=== PATIENT | female | born 1950 | race Caucasian/White ===

== ENCOUNTER → 2017-08-24 21:05 | Outpatient (CLI) | payer MEDICARE, OTHER | END | disposition home or self-care (01) | LOC: D.MAMMO 08-23 10:30 → D.US 08-23 11:30 → D.MAMMO 10:30 | DX: Z85.3 Personal history of malignant neoplasm of breast (principal) ==

== ENCOUNTER → 2018-05-31 10:55 | Outpatient (CLI) | payer MEDICARE, OTHER | END | disposition home or self-care (01) | LOC: D.LABREF 10:55 | PROVIDERS: ATTEND Internal Medicine Pulmonary Disease | DX: J45.909 Unspecified asthma, uncomplicated (principal) ==

== ENCOUNTER → 2018-06-01 10:35 | Outpatient (CLI) | payer MEDICARE, OTHER ==
[2018-06-01 11:23] LABS: BASOPHILS 0.6 % (0-2); EOSINOPHILS 2.7 % (0-7); HEMATOCRIT 39.9 % (36.0-48.0); HEMOGLOBIN 12.7 g/dL (12-16); IMMATURE GRANULOCYTES 0.2 % (0-5); LYMPHOCYTES 42.6 % (15-50); MCH 28.9 pg (26.0-34.0); MCHC 31.8 g/dL (31.0-37.0); MCV 90.9 fL (80.0-100.0); MEAN PLATELET VOLUME 9.6 fL (7.4-10.4); MONOCYTES 6.5 % (2-11); NEUTROPHILS 47.4 % (40-80); PLATELET COUNT 295 10x3/uL (130-400); RBC 4.39 10x6/uL (4.00-5.40); RDW 13.7 % (11.5-14.5); WBC 4.8 10x3/uL (4.8-10.8)
== END | disposition home or self-care (01) ==
LOC: D.LABREF 10:35
PROVIDERS: Internal Medicine Pulmonary Disease
DX: J45.909 Unspecified asthma, uncomplicated (principal)

== ENCOUNTER → 2018-08-01 09:18 | Outpatient (CLI) | payer MEDICARE, OTHER | END | disposition home or self-care (01) | LOC: D.RT 06-06 14:00 → D.RAD 06-06 15:00 → D.RT 09:18 | PROVIDERS: ATTEND Internal Medicine Pulmonary Disease | DX: J45.909 Unspecified asthma, uncomplicated (principal) ==

== ENCOUNTER 2018-08-27 08:00 | Outpatient (CLI) | payer MEDICARE, OTHER | END 2018-08-27 23:59 | disposition home or self-care (01) | LOC: D.MAMMO 08:00 | PROVIDERS: ATTEND Internal Medicine Hematology & Oncology | DX: C50.911 Malignant neoplasm of unspecified site of right female breast (principal) ==

== ENCOUNTER 2019-01-25 19:15 | Emergency (ER) | payer MEDICARE, OTHER ==
[~2019-01-25] VITALS: Ht 162.6 cm; Wt 79.5 kg
[2019-01-25 19:25] VITALS: Ht 162.6 cm; Wt 79.5 kg
[2019-01-25] MEDS ORDERED: POLYTRIM EYE DR10 ML LEFT EYE (20:20)
[2019-01-25 20:26] VITALS: BP 149/74
== END 2019-01-25 20:27 | disposition home or self-care (01) ==
LOC: D.ER 19:15
DX: H57.12 Ocular pain, left eye (principal); I10 Essential (primary) hypertension; J45.909 Unspecified asthma, uncomplicated; M35.00 Sjogren syndrome, unspecified

== ENCOUNTER 2019-06-24 11:10 | Emergency (ER) | payer MEDICARE, OTHER ==
[~2019-06-24] VITALS: Ht 162.6 cm; Wt 79.5 kg
[~2019-06-24 11:10] MED LIST: POLYTRIM EYE DR10 ML LEFT EYE
[2019-06-24 11:16] VITALS: Ht 162.6 cm; Wt 79.5 kg
[2019-06-24] MEDS ORDERED: LOSARTAN-HCTZ1 EAC1 PO (11:20)
[2019-06-24] MEDS ORDERED: GABAPENTIN300 MG (11:20)
[2019-06-24] MEDS ORDERED: RELAFEN500 MG (11:20)
[2019-06-24] MEDS ORDERED: BREO ELLIPTA 11 EACH INH (11:21)
[2019-06-24] MEDS ORDERED: VENTOLIN HFA [SP8 GM INH (11:22)
[2019-06-24] MEDS ORDERED: OMEPRAZOLE40 MG PO (11:23)
[2019-06-24] MEDS ORDERED: XANAX XR0.5 MG PO (11:23)
[2019-06-24] MEDS ORDERED: SINGULAIR10 MG PO (11:23)
[2019-06-24] MEDS ORDERED: FLUTICASONE PRO16 GM NASAL (11:24)
[2019-06-24] MEDS ORDERED: ANASTROZOLE (11:25)
[2019-06-24] MEDS ORDERED: MELATONIN5 MG PO (11:26)
[2019-06-24] MEDS ORDERED: CALCIUM 600 +1 EAC3 (11:26)
[2019-06-24] MEDS ORDERED: [UNRECOGNIZED DRUG - OTHER] (11:27)
[2019-06-24] MEDS ORDERED: [UNRECOGNIZED DRUG - OTHER] (11:27)
[2019-06-24] MEDS ORDERED: HAIR SKIN NAILS (11:27)
[2019-06-24] MEDS ORDERED: FIBERCON625 MG (11:28)
[2019-06-24] MEDS ORDERED: CLEAR LUNGS (11:28)
[2019-06-24 12:07] LABS: BASOPHILS 0.5 % (0-2); EOSINOPHILS 1.9 % (0-7); HEMATOCRIT 43.1 % (36.0-48.0); IMMATURE GRANULOCYTES 0.3 % (0-5); LYMPHOCYTES 34.3 % (15-50); MCH 28.9 pg (26.0-34.0); MCHC 32.5 g/dL (31.0-37.0); MONOCYTES 6.6 % (2-11); NEUTROPHILS 56.4 % (40-80); PLATELET COUNT 309 10x3/uL (130-400); RBC 4.84 10x6/uL (4.00-5.40); RDW 12.4 % (11.5-14.5); WBC 5.7 10x3/uL (4.8-10.8)
[2019-06-24 12:13] LABS: CALC OSMOLALITY 270 mosm/kg (275-300); CALCIUM 10.6 mg/dL (8.5-10.1); CARBON DIOXIDE 25.9 mmol/L (21.0-32.0); CHLORIDE - SERUM 100 mmol/L (98-107); CREATININE - SERUM 0.9 mg/dL (0.6-1.3); GLUCOSE 96 mg/dL (74-106); POTASSIUM - SERUM 4.3 mmol/L (3.5-5.1); SODIUM 135 mmol/L (136-145); UREA NITROGEN 14 mg/dL (7-18); eGFR NON AFRICAN AMERICAN 66 mL/min (90-120)
[2019-06-24 12:31] LABS: ALBUMIN 4.5 g/dL (3.4-5.0); ALKALINE PHOSPHATASE 91 U/L (30-120); ALT (SGPT) 29 U/L (10-68); BILIRUBIN - TOTAL 0.57 mg/dL (0.2-1.3); CKMB 0.8 U/L (0.0-3.6); CREATINE KINASE 60 UL (21-215); PRO BNP 11 pg/mL (0-125); PROTEIN - SERUM 7.6 g/dL (6.4-8.2); TROPONIN-I < 0.017 ng/mL (0.000-0.060)
[2019-06-24 12:40] LABS: INR 0.9 (0.85-1.17); PROTIME 12.1 SECONDS (11.6-15.0)
[2019-06-24 13:07] VITALS: BP 118/64
== END 2019-06-24 13:11 | disposition home or self-care (01) ==
LOC: D.ER 11:10
PROVIDERS: Family Medicine
DX: R06.09 Other forms of dyspnea (principal); I10 Essential (primary) hypertension; E78.5 Hyperlipidemia, unspecified; J45.909 Unspecified asthma, uncomplicated; M35.00 Sjogren syndrome, unspecified; K21.9 Gastro-esophageal reflux disease without esophagitis

== ENCOUNTER → 2019-07-08 08:33 | Outpatient (CLI) | payer MEDICARE, OTHER ==
[2019-06-24 11:16] VITALS: BMI 30.1
[~2019-07-08 08:33] MED LIST changes: +ANASTROZOLE; +BREO ELLIPTA 11 EACH INH; +CALCIUM 600 +1 EAC3; +CLEAR LUNGS; +FIBERCON625 MG; +FLUTICASONE PRO16 GM NASAL; +GABAPENTIN300 MG; +HAIR SKIN NAILS; +LOSARTAN-HCTZ1 EAC1 PO; +MELATONIN5 MG PO; +OMEPRAZOLE40 MG PO; +RELAFEN500 MG; +SINGULAIR10 MG PO; +VENTOLIN HFA [SP8 GM INH; +XANAX XR0.5 MG PO; +[UNRECOGNIZED DRUG - OTHER]; +[UNRECOGNIZED DRUG - OTHER]
== END | disposition home or self-care (01) ==
LOC: D.HCCECHO 08:33
PROVIDERS: ATTEND Internal Medicine Cardiovascular Disease
DX: R06.02 Shortness of breath (principal)

== ENCOUNTER → 2019-07-10 07:54 | Outpatient (CLI) | payer MEDICARE, OTHER ==
[2019-06-24 11:16] VITALS: BMI 30.1
== END | disposition home or self-care (01) ==
LOC: D.HCCARDIO 07:54
PROVIDERS: ATTEND Internal Medicine Cardiovascular Disease
DX: I20.9 Angina pectoris, unspecified (principal)

== ENCOUNTER 2019-07-23 06:21 | Outpatient (CLI) | payer MEDICARE, OTHER ==
[~2019-07-23] VITALS: Ht 162.6 cm; Wt 80.7 kg
--- NOTE | ~2019-07-23 | HEMODYNAMI ---
PATIENT:BRYAN UGALDE MEDICAL RECORD: [id number] : 48 LOCATION:[facility] ADMISSION DATE: 07/23/19 Generatedon:07/23/20198:44 Patient name: BRYAN UGALDE Patient #: [id number] SSN: [id number] : 1950 Date of study: 07/23/2019 Page: Of Hemodynamic Procedure Report Patient Data Patient Demographics Procedure consent was obtained First Name: BRYAN Gender: Female Last Name: AFTAB : 1950 Patient #: [id number] Age: 69 year(s) Race: Unknown SSN: [id number] Additional ID: [id number] Contact details Address: [address] [place] [address] State: [place] City: [place] Zip code: [address] Past Medical History Performed procedures and imaging results Date Procedure Procedure Results Comments Stress testing Positive->Intermediate with SPECT MPI risk Allergies Allergen Reaction Date Comments Reported Shellfish 07/23/2019 Admission Admission Data Admission Date: 07/23/2019 Admission Time: 6:21 Arrival Date: 07/23/2019 Arrival Time: 0:00 Height (in.): 64 BSA: 1.86 (m2) Height (cm.): 162.56 BMI: 30.38 (kg/m2) Weight (lbs.): 177 Weight (kg.): 80.29 Lab Results Lab Result Date: 07/23/2019 Lab Result Time: 0:00 Biochemistry Name Units Result Min Max BUN mg/dl 12 --(-*--)-- 7 18 Creatinine mg/dl 0.9 --(-*--)-- 0.6 1.3 eGFR ml/min 66 *-(----)-- 90 120 NONAFRICAN CBC Name Units Result Min Max Hematocrit % 38 *-(----)-- 42 54 Hemoglobin g/dl 12.8 -*(----)-- 13.5 17.5 Procedure Procedure Types Cath Procedure Diagnostic Procedure [facility] w/Coronaries Sedation Charges Moderate Sedation up to 15 minutes PCI Procedure Coronary Stent Coronary Stent Initial Hemochron ACT Test Procedure Description Procedure Date Procedure Date: 07/23/2019 Procedure Start Time: 8:16 Procedure End Time: 8:42 Procedure Staff Name Function Mitchel Jama MD Performing Physician Bell Erickson RT Monitor Simin Stanley RT Scrub Deanna Matute RN Nurse Grecia Bean, RN Nurse Procedure Data Cath Procedure Fluoroscopy Diagnostic fluoroscopy Total fluoroscopy Time: 4.7 time: 4.7 min min Diagnostic fluoroscopy Total fluoroscopy dose: 546 dose: 546 mGy mGy Contrast Material Contrast Material Type Amount (ml) Isovue 300 95 Entry Location Entry Primary Successful Side Size Upsize Upsize Entry Closure Trejo ccessful Closure Location (Fr) 1 (Fr) 2 (Fr) Remarks Device Remarks Radial Right 6 Fr Mechanical artery Short Compression Estimated blood loss: 10 ml Diagnostic catheters Device Type Used For End Catheter Placement DIAGNOSTIC Inola 110cm 5 Procedure Fr catheter ([id number]) Procedure Complications No complications Procedure Medications Medication Administration Route Dosage 0.9% NaCl I.V. 100 ml/hr Oxygen etCO2 Nasal cannula 2 l/min Lidocaine 2% added to field 20 Heparin Flush Bag added to field 2 bags (1000units/500ml NS) Radial Cocktail added to field 1 syringe (Verapamil 2mg/Nitro 400mcg/Heparin 1500units) Phenergan I.V. 25 mg Fentanyl I.V. 100 mcg Versed I.V. 2 mg Versed I.V. 1 mg Versed I.V. 1 mg Heparin Bolus I.V. 8000 units Hemodynamics Rest BSA: 1.86 (m2) HGB: 12.8 (g/dl) O2 Consumption: Estimated: 174.53 (ml/min) O2 Co nsumption indexed: Estimated:93.83 (ml/min/m) Heart Rate: 74 (bpm) Pressure Samples Time Site Value (mmHg) Purpose Heart Use Rate(bpm) 8:23 LV 136/6,14 Snapshot 75 Gradients Valve Time Site Site Mean SEP/DFP Peak To Heart Use 1 2 (mmHg) (sec/min) Peak Rate (mmHg) (bpm) Aortic 8:23 LV AO 96 Snapshots Pre Cath Intra NCS Post Cath Vital Signs Time Heart Resp SPO2 etCO2 NIBP (mmHg) Rhythm Pain Sedation Rate (ipm) (%) (mmHg) Status Level (bpm) 8:07:17 76 16 97 26.3 133/74(105) NSR 0 (11) 10(A) , No pain 8:12:16 70 16 98 30.2 Measuring NSR 0 (11) 10(A) , No pain 8:12:18 70 13 97 30.2 134/67(107) NSR 0 (11) 10(A) , No pain 8:16:34 76 12 97 33.9 136/72(110) NSR 0 (11) 10(A) , No pain 8:20:52 69 17 98 27.2 134/69(102) NSR 0 (11) 10(A) , No pain 8:25:06 72 12 98 33.2 117/64(87) NSR 0 (11) 10(A) , No pain 8:29:14 81 10 98 31.7 113/71(93) NSR 0 (11) 10(A) , No pain 8:33:24 72 11 97 34.7 126/62(99) NSR 0 (11) 10(A) , No pain 8:37:38 79 12 97 35.4 129/64(94) NSR 0 (11) 10(A) , No pain 8:41:54 74 10 98 30.2 127/65(98) NSR 0 (11) 10(A) , No pain Medications Time Medication Route Dose Verified Delivered Reason Note s Effectiveness by by 8:08:35 0.9% NaCl I.V. 100 Mitchel Deanna used for ml/hr Wiley Matute top trimmer 8:08:42 Oxygen etCO2 2 l/min Mitchel Deanna used for Nasal Wiley Matute procedure cannula RN 8:08:47 Lidocaine 2% added 20ml Mitchel Mitchel for local to vial Wiley Jama MD anesthetic field 8:08:50 Heparin Flush added 2 bags Mitchel Mitchel used for Bag to Wiley Jama MD procedure (1000units/500ml field NS) 8:08:55 Radial Cocktail added 1 Mitchel Mitchel used for (Verapamil to syringe Wiley Jama MD procedure 2mg/Nitro field 400mcg/Heparin 1500units) 8:09:40 Phenergan I.V. 25 mg Mitchel Deanna for nausea Wiley Matute RN 8:19:07 Fentanyl I.V. 100 mcg Mitchel Deanna for sedation Wiley Matute RN 8:19:14 Versed I.V. 2 mg Mitchel Deanna for sedation Wiley Matute RN 8:21:23 Versed I.V. 1 mg Mitchel Deanna for sedation Wiley Matute RN 8:23:32 Versed I.V. 1 mg Mitchel Deanna for sedation Wiley Matute RN 8:33:01 Heparin Bolus I.V. 8000 Mitchel Deanna for veri fied units Wiley Matute anticoagulation with Dr. DEMETRICE Jama Procedure Log Time Note 7:42:40 Informed consent obtained and on chart 7:43:25 Procedure Status Elective Heart Cath (OP). 7:43:26 Time tracking: Regular hours (M-F 7:00 - 5:00) 7:43:30 Plan of Care:Hemodynamics will remain stable., Cardiac rhythm will remain stable., Comfort level will be maintained., Respiratory function will remain adequate., Patient/ family verbilizes understanding of procedure., Procedure tolerated without complication., Recovers from procedure without complications.. 7:44:01 Simin Stanley RT(R) sent for patient. Start room use. 7:44:10 H&P Date Dictated: 07/04/2019 Within 30 days and on chart., H&P Addendum completed by physician on day of procedure. (MUST COMPLETE FOR ALL OUTPATIENTS). 7:46:00 Patient allergic to Shellfish 7:47:28 Lab Result : BUN 12 mg/dl 7:47:28 Lab Result : eGFR NONAFRICAN 66 ml/min 7:47:28 Lab Result : Creatinine 0.9 mg/dl 7:47:28 Lab Result : Hemoglobin 12.8 g/dl 7:47:28 Lab Result : Hematocrit 38 % 7:51:43 Stress Test: yes; abnormal ANTERIOR AND APICAL 7:51:58 Patient Weight : 177 lbs 7:52:01 Patient Height : 64 inches 7:52:04 Arrival Date: 07/23/2019 12:00:00 AM 7:57:34 Patient received from Pre/Post Procedure Room to [facility] 1 Alert and oriented. Tansferred to table in Supine position. 7:57:35 Warm blankets applied, and humaira hugger turned on for patient comfort. 7:57:35 Correct patient and procedure confirmed by team. 7:57:36 ECG and BP/O2 sat monitors applied to patient. 8:06:10 Vital chart was started 8:06:12 Baseline sample Acquired. 8:06:21 Rhythm: sinus rhythm 8:06:23 Full Disclosure recording started 8:06:24 8:06:25 Pre-procedure instructions explained to patient. 8:06:26 Pre-op teaching completed and patient verbalized understanding. 8:06:28 Family in patients room. 8:06:31 Patient NPO since Midnight. 8:06:42 Is the patient allergic to Iodine/contrast media? No. 8:07:14 Was the patient premedicated? Yes 8:07:17 Is patient on blood thinner?No 8:07:22 Patient diabetic? No. 8:07:28 ----Pre-sedation anethsthesia assessment.---- 8:07:49 Previous problem with sedation/anesthesia? Yes NAUSEA 8:08:35 0.9% NaCl 100 ml/hr I.V. was administered by Deanna Matute RN; used for procedure; Verbal order read back and verified. 8:08:40 Snore? Yes 8:08:42 Oxygen 2 l/min etCO2 Nasal cannula was administered by Deanna Matute RN; used for procedure; Verbal order read back and verified. 8:08:47 Lidocaine 2% 20ml vial added to field was administered by Mitchel Jama MD; for local anesthetic; Verbal order read back and verified. 8:08:50 Heparin Flush Bag (1000units/500ml NS) 2 bags added to field was administered by Mitchel Jama MD; used for procedure; Verbal order read back and verified. 8:08:55 Radial Cocktail (Verapamil 2mg/Nitro 400mcg/Heparin 1500units) 1 syringe added to field was administered by Mitchel Jama MD; used for procedure; Verbal order read back and verified. 8:08:56 Sleep apnea? Yes 8:08:59 Deviated septum? Unknown 8:09:01 Opens mouth fully? Yes 8:09:06 Sticks out tongue? Yes 8:09:14 Airway obstruction? Yes SLEEP APNEA 8:09:19 Dentures? No ? 8:09:26 Pre procedure: right dorsailis pedis pulse 2+ Normal; easily identifiable; not easily obliterated 8:09:35 Modified Manuel's test Ulnar > 7 seconds. 8:09:40 Phenergan 25 mg I.V. was administered by Deanna Matute RN; for nausea; Verbal order read back and verified. 8:09:46 IV patent on arrival in left antecubital with 0.9% NaCl at O. 8:09:56 Lab results completed and on chart. 8:10:04 Right Radial & Right Groin area was prepped with chlora-prep and draped in sterile fashion 8:10:07 Alarms reviewed by R. N. 8:10:08 Sharps counted by scrub and verified by R.N. 8:10:12 Physician arrived 8:10:12 --------ALL STOP TIME OUT------ 8:10:13 Final Timeout: patient, procedure, and site verified with staff and physician. All members of the team are in agreement. 8:10:16 Right Radial & Right Groin site verified by team. 8:10:22 Fire Safety Assessment: A--An alcohol-based skin anteseptic being used preoperatively., C--Open oxygen or nitrous oxide is being used., D--An ESU, laser, or fiber-optic light is being used. 8:10:30 Physical assessment completed. ASA score P 2 - A patient with mild systemic disease as per Mitchel Jama MD. 8:10:35 2) 60-89 Mildly reduced kidney function, and other findings (as for stage 1) point to kidney disease. 8:10:42 Maximum allowable contrast dose (3.7 X eGFR X 0.75)183 ml. 8:10:48 Sedation plan: IV Moderate Sedation Medication:Versed, Fentanyl 8:11:31 Use device set Radial Dx or PCI 8:11:33 ACIST Syringe (11164) opened to sterile field. 8:11:34 Medline Cath Pack ([id number]) opened to sterile field. 8:11:34 Bag Decanter () opened to sterile field. 8:11:35 ACIST Hand Control (93811) opened to sterile field. 8:11:36 ACIST Manifold (51132) opened to sterile field. 8:11:38 MBrace Wrist Support ([id number]) opened to sterile field. 8:11:38 NEEDLE Cook 21G 4cm Radial (X09589) opened to sterile field. 8:11:41 EMERALD Guide Wire (502-885) opened to sterile field. 8:11:41 SHEATH 6FR RAIN (0388595) opened to sterile field. 8:15:54 Risk of Mortality: 0.1 8:15:58 Risk of blood transfusion: 0.3 8:16:04 Risk of RAYO: 0.8 8:16:13 Procedure started. 8:16:18 Zero performed for pressure channel P1 8:16:36 Local anesthetic to right radial artery with Lidocaine 2% by Mitchel Jama MD.INITIAL ACCESS ONLY 8:19:07 Fentanyl 100 mcg I.V. was administered by Deanna Matute RN; for sedation; Verbal order read back and verified. 8:19:14 Versed 2 mg I.V. was administered by Deanna Matute RN; for sedation; Verbal order read back and verified. 8:21:23 Versed 1 mg I.V. was administered by Deanna Matute RN; for sedation; Verbal order read back and verified. 8:21:52 A 6 Fr Short sheath was inserted into the Right Radial artery 8:22:35 A DIAGNOSTIC Inola 110cm 5 Fr catheter (140863) was advanced over the wire and used for Procedure. 8:22:46 Injector settings: Ml/sec: 5, Volume: 15, 8:22:50 LV gram done using WELSH 8:23:22 LV hemodynamics recorded. 8:23:32 Versed 1 mg I.V. was administered by Deanna Matute RN; for sedation; Verbal order read back and verified. 8:23:42 EF : 60 % 8:24:32 LCA angiography performed. 8:24:42 Injector settings: Ml/sec: 3, Volume: 6, 8:26:19 RCA angiography performed. 8:26:24 Injector settings: Ml/sec: 3, Volume: 6, 8:26:52 ACCDominant side:Co-Dominant 8:29:23 Catheter removed. 8:29:24 Proceeding to intervention. 8:29:38 Use device set JAMA PCI 8:29:55 TUBING High Pressure Extension Tubing (Jama) ([id number]) opened to sterile field. 8:29:57 INFLATOR Merit BasixCompak (KA1895) opened to sterile field. 8:30:15 BMW 300cm Prince 2 J wire ([id number]) opened to sterile field. 8:30:22 GUIDE 6FR XBLAD 3.5 catheter ([id number]) opened to sterile field. 8:30:32 ACC Pre-intervention SID Flow is 3. 8:30:54 6 Fr XBLAD3.5 guide catheter was inserted over the wire 8:32:06 Pre PCI Site: [place] mLAD has 70% stenosis. 8:32:27 ULA606 wire advanced. 8:33:01 Heparin Bolus 8000 units I.V. was administered by Deanna Matute RN; for anticoagulation; verified with Dr. Jama Verbal order read back and verified. 8:33:07 Wire advanced across lesion. 8:36:42 Place stent Inflation Number: 1 A SHEREE OTW 3.5 x 15 stent ([id number]) was prepped and advanced across the Mid LAD . The stent was deployed at 12 PURVI for 0:25 (min:sec) . 8:37:04 Stent catheter was removed intact over wire. 8:37:10 ACC Post-intervention SID Flow is 3. 8:37:18 Post PCI Site: [place] mLAD has 0% stenosis. 8:37:29 Wire removed. 8:37:30 Guide catheter removed. 8:37:39 ZEPHYR REGULAR TR BAND (642371) opened to sterile field. 8:39:00 Sheath removed intact; hemostasis achieved with Mechanical Compression to the Right Radial artery. 8:39:03 Procedure ended.(Physican Out) 8:39:40 Fluoroscopy time 04.70 minutes. 8:39:47 Fluoroscopy dose: 546 mGy 8:39:47 Flurop Dose total: 546 8:39:57 Dose Area Product 02325 mGy/cm. 8:40:09 Contrast amount:Isovue 300 95ml. 8:40:14 Maximum allowable dose exceeded? No. 8:40:16 Sharps counted by scrub and verified by R.N. 8:40:20 [place] band inflated with 10cc of air. 8:40:32 Post right radial artery:stable 8:40:38 Post-procedure physical assessment completed. ASA score P 2 - A patient with mild systemic disease as per Mitchel Jama MD. 8:40:43 Post procedure rhythm: unchanged. 8:40:45 ACT drawn and resulted at >400-out of range seconds. (normal therapeutic range 180-240 seconds). 8:40:47 Estimated blood loss: 10 ml 8:41:21 Post procedure instruction explained to patient.Patient verbalizes understanding. 8:41:22 Patient needs reinforcement of post procedure teaching. 8:41:47 Procedure type changed to Cath procedure, Diagnostic procedure, LHC, [facility] w/Coronaries, Sedation Charges, Moderate Sedation up to 15 minutes, PCI procedure, Coronary Stent, Coronary Stent Initial, Hemochron ACT Test 8:41:50 Procedure and supply charges have been captured, reviewed, submitted and are correct. 8:42:04 Procedure Complication : No complications 8:42:08 Vital chart was stopped 8:42:12 [facility] Findings: MVD- PCI performed (see procedure note) 8:42:15 Operative report dictated upon procedure completion. 8:42:16 See physician's report for complete and final results. 8:42:19 Report given to Pre/Post Procedure Room. 8:42:24 Patient transfered to Pre/Post Procedure Room with Stretcher. 8:42:29 Procedure ended. 8:42:29 Full Disclosure recording stopped 8:42:40 ACC-PCI Only Patient was given prescriptions, or instructed by Mitchel Jama MD to start/continue the following medications upon discharge: Plavix 8:42:43 End room use (Document Last) Intervention Summary Intervention Notes Time ActionType Lesion and Equipment Action# Pressure Duration Attributes Used 8:36:42 Place stent Mid LAD SHEREE OTW 3.5 1 12 00:25 x 15 stent ([id number]) Device Usage Item Name Manufacture Quantity Catalog Hospital Part Current Mini mal Lot# / Number Charge Number Stock Stock Serial# Code ACIST Syringe Acist 1 09274 735785 975703 231704 20 (38488) DinersGroup Medline Cath Medline 1 [id number] 835531 01663 154593 5 Pack ([id number]) Bag Decanter Microtek 1 2001S 942256 49371 420363 5 () Medical Inc. ACIST Hand Acist 1 78528 842409 714208 885956 5 Control Medical (13970) Systems Inc ACIST Acist 1 66062 588235 554110 292841 5 Manifold Medical (55174) Systems Inc MBrace Wrist Advanced 1 140-0250-00 758239 21634 061929 5 Support Vascular (300943327) Dynamics NEEDLE Cook Cook Medical 1 B77484 950593 782016 851048 5 21G 4cm Radial (I50535) EMERALD Guide Cardinal 1 502-455 317718 630127 918910 5 Wire Health (502455) SHEATH 6FR Cardinal 1 5649890 939555 6493008 030693 5 [facility] Recensus (8483799) DIAGNOSTIC Terumo 1 40-9507 977850 330807 956545 5 Inola 110cm 5 Fr catheter (386730) TUBING High Merit 1 [id number] 913992 63383 343177 10 Pressure Medical Extension Tubing (Jama) ([id number]) INFLATOR Merit 1 WH8761 256655 114851 111216 15 Merit Medical BasixCompak (HD9947) BMW 300cm Mejia 1 [id number] 446512 726148 239062 5 Prince 2 J Vascular wire (1602727B) GUIDE 6FR Cardinal 1 [id number] 857047 895330 087213 10 XBLAD 3.5 Health catheter (64344247) SHEREE OTW 3.5 Medtronic 1 [id number] 667251 8580313 106837 5 [id number] x 15 stent ([id number]) ZEPHYR Cardinal 1 586845 644101 8103595 409663 5 REGULAR TR Health BAND (174111) Signature Audit [place] Stage Time Signature Unsigned Intra-Procedure 07/23/2019 Bell 8:43:33 AM Georgina RT(R) (CV) Intra-Procedure 07/23/2019 Deanna Matute 8:44:06 AM RN Intra-Procedure 07/23/2019 Mitchel Jama MD 8:44:36 AM [facility] [address] [place] [address]
[2019-07-23] MEDS ORDERED: VENTOLIN HFA [SP8 GM INH (06:42)
[2019-07-23] MEDS ORDERED: LOSARTAN-HCTZ1 EAC1 PO (06:42)
[2019-07-23] MEDS ORDERED: NEURONTIN 300300 MG PO (06:42)
[2019-07-23] MEDS ORDERED: BREO ELLIPTA 21 EACH (06:43)
[2019-07-23] MEDS ORDERED: RELAFEN500 MG PO (06:45)
[2019-07-23] MEDS ORDERED: BAYER CHEWABLE81 MG PO (06:46)
[2019-07-23] MEDS ORDERED: CO Q-10400 MG PO (06:46)
[2019-07-23] MEDS ORDERED: FIBERCON625 MG PO (06:47)
[2019-07-23] MEDS ORDERED: PREDNISONE20 MG PO (06:48)
[2019-07-23 07:05] VITALS: BP 153/76; Ht 162.6 cm; Wt 80.7 kg
[2019-07-23 07:10] LABS: BASOPHILS 0 % (0-2); EOSINOPHILS 0 % (0-7); HEMOGLOBIN 12.8 g/dL (12-16); IMMATURE GRANULOCYTES 0.5 % (0-5); LYMPHOCYTES 22.8 % (15-50); MCH 29.4 pg (26.0-34.0); MCHC 33.7 g/dL (31.0-37.0); MCV 87.2 fL (80.0-100.0); MEAN PLATELET VOLUME 8.7 fL (7.4-10.4); MONOCYTES 2.7 % (2-11); PLATELET COUNT 311 10x3/uL (130-400); RBC 4.36 10x6/uL (4.00-5.40); WBC 4.1 10x3/uL (4.8-10.8)
[2019-07-23 07:19] LABS: ANION GAP 12.6 mmol/L (8-16); CALCIUM 9.3 mg/dL (8.5-10.1); CARBON DIOXIDE 25.9 mmol/L (21.0-32.0); CHOL - HDL RATIO 2.1 ratio (2.3-4.1); CREATININE - SERUM 0.9 mg/dL (0.6-1.3); POTASSIUM - SERUM 4.5 mmol/L (3.5-5.1)
[2019-07-23] MEDS ORDERED: PLAVIX75 MG PO (08:48)
--- NOTE | 2019-07-23 08:51 | NUR ---
PT ARRIVED BY STRETCHER. PLACED ON MONITORS. ASSESSMENT COMPLETED. VSS. FAMILY AT BEDSIDE.
--- NOTE | 2019-07-23 09:06 | NUR ---
RIGHT WRIST Z BAND IN PLACE. NO BLEEDING/HEMATOMA NOTED. CALL LIGHT WITHIN REACH. PT DENIES NAUSEA/PAIN AT THIS TIME. TOLERATING SIPS OF SODA. RESTING COMFORTABLY.
--- NOTE | 2019-07-23 09:36 | NUR ---
PT RESTING COMFORTABLY. VSS. RIGHT WRIST Z BAND IN PLACE. NO BLEEDING/HEMATOMA NOTED. CALL LIGHT WITHIN REACH. NO NEEDS AT THIS TIME.
--- NOTE | 2019-07-23 09:54 | NUR ---
DR. CHAVEZ AT BEDSIDE. UPDATING PT AND PT'S FAMILY. RIGHT WRIST Z BAND IN PLACE. NO BLEEDING/HEMATOMA NOTED. CALL LIGHT WITHIN REACH.
--- NOTE | 2019-07-23 10:30 | NUR ---
RIGHT WRIST Z BAND IN PLACE. NO BLEEDING/HEMATOMA NOTED. PT SET UP WITH SANDWICH TRAY AND DRINK AT THIS TIME. DENIES NAUSEA/PAIN.
--- NOTE | 2019-07-23 11:15 | NUR ---
1cc OF AIR REMOVED FROM Z BAND. NO BLEEDING/HEMATOMA NOTED. PT AMBULATED TO RESTROOM AND VOIDED WITHOUT DIFFICULTY. STEADY GAIT NOTED. PT BACK TO BED AND PLACED ON MONITORS. VSS AT THIS TIME. CALL LIGHT WITHIN REACH.
--- NOTE | 2019-07-23 11:30 | NUR ---
2cc OF AIR REMOVED FROM Z BAND. NO BLEEDING/HEMATOMA NOTED. CALL LIGHT WITHIN REACH. VSS AT THIS TIME. FAMILY AT BEDSIDE.
--- NOTE | 2019-07-23 11:45 | NUR ---
3cc OF AIR REMOVED FROM Z BAND. NO BLEEDING/HEMATOMA NOTED. CALL LIGHT WITHIN REACH. VSS AT THIS TIME.
--- NOTE | 2019-07-23 12:00 | NUR ---
4cc OF AIR REMOVED FROM Z BAND. NO BLEEDING/HEMATOMA NOTED. CALL LIGHT WITHIN REACH. VSS AT THIS TIME.
--- NOTE | 2019-07-23 12:15 | NUR ---
Z BAND REMOVED AND DRESSING APPLIED. NO BLEEDING/HEMATOMA NOTED. PIV D/C'D WITH CATH TIP INTACT. TOLERATED WELL. VSS. PT INSTRUCTED TO GET UP AND DRESSED AT THIS TIME. AT BEDSIDE TO ASSIST.
--- NOTE | 2019-07-23 12:25 | NUR ---
DISCUSSED DISCHARGE INSTRUCTIONS WITH PT AND PT'S . THEY VOICED UNDERSTANDING. PT TO RESTROOM AND VOIDED WITHOUT DIFFICULTY. STEADY GAIT NOTED.
--- NOTE | 2019-07-23 12:30 | NUR ---
RIGHT WRIST DRESSING C/D/I. NO S/S OF HEMATOMA NOTED. RIGHT WRIST BRACE IN PLACE. PT TAKEN DOWN TO VEHICLE BY WHEELCHAIR. NO S/S OF DISTRESS NOTED. ALL BELONGINGS AND PAPERWORK IN HAND.
== END 2019-07-23 12:30 | disposition home or self-care (01) ==
LOC: D.CATH 06:21
PROVIDERS: ATTEND Internal Medicine Cardiovascular Disease
DX: I25.119 Atherosclerotic heart disease of native coronary artery with unspecified angina pectoris (principal); R94.30 Abnormal result of cardiovascular function study, unspecified; E78.5 Hyperlipidemia, unspecified; I10 Essential (primary) hypertension; R06.00 Dyspnea, unspecified; R07.9 Chest pain, unspecified
CPT/HCPCS: 93458; C9600

== ENCOUNTER → 2019-08-12 14:54 | Outpatient (CLI) | payer MEDICARE, OTHER ==
[2019-07-23 07:05] VITALS: BMI 30.5
[~2019-08-12 14:54] MED LIST changes: +BAYER CHEWABLE81 MG PO; +BREO ELLIPTA 21 EACH; +CO Q-10400 MG PO; +FIBERCON625 MG PO; +NEURONTIN 300300 MG PO; +PLAVIX75 MG PO; +PREDNISONE20 MG PO; +RELAFEN500 MG PO
== END | disposition home or self-care (01) ==
LOC: D.RT 14:45
PROVIDERS: ATTEND Internal Medicine Interventional Cardiology
DX: R06.00 Dyspnea, unspecified (principal)

== ENCOUNTER 2019-09-04 07:59 | Outpatient (CLI) | payer MEDICARE, OTHER ==
[~2019-09-04] VITALS: Ht 162.6 cm; Wt 81.3 kg
--- NOTE | ~2019-09-04 | HEMODYNAMI ---
PATIENT:BRYAN UGALDE MEDICAL RECORD: [id number] : 48 LOCATION:[facility] ADMISSION DATE: 09/04/19 Generatedon:09/04/201910:29 Patient name: BRYAN UGALDE Patient #: [id number] SSN: [id number] : 1950 Date of study: 09/04/2019 Page: Of Hemodynamic Procedure Report Patient Data Patient Demographics Procedure consent was obtained First Name: BRYAN Gender: Female Last Name: AFTAB : 1950 Patient #: [id number] Age: 69 year(s) Race: Unknown SSN: [id number] Additional ID: [id number] Contact details [address]: [address] [place] [address] State: [place] City: [place] Zip code: [address] Past Medical History Allergies Allergen Reaction Date Comments Reported Shellfish 07/23/2019 Shellfish 09/04/2019 Admission Admission Data Admission Date: 09/04/2019 Admission Time: 7:59 Arrival Date: 09/04/2019 Arrival Time: 0:00 Admit Source: Other Insurance Payor: Medicare [facility] #: [id number] Height (in.): 65 BSA: 1.88 (m2) Height (cm.): 165.1 BMI: 29.45 (kg/m2) Weight (lbs.): 177 Weight (kg.): 80.29 Lab Results Lab Result Date: 09/04/2019 Lab Result Time: 0:00 Biochemistry Name Units Result Min Max BUN mg/dl 12 --(-*--)-- 7 18 Creatinine mg/dl 0.8 --(-*--)-- 0.6 1.3 eGFR ml/min 75 *-(----)-- 90 120 NONAFRICAN CBC Name Units Result Min Max Hematocrit % 39.1 -*(----)-- 42 54 Hemoglobin g/dl 13.1 -*(----)-- 13.5 17.5 Procedure Procedure Types Cath Procedure Diagnostic Procedure DENYS Procedure Description Procedure Date Procedure Date: 09/04/2019 Procedure Start Time: 10:14 Procedure End Time: 10:26 Procedure Staff Name Function Nj Monroe MD Performing Physician Miriam Chong RT Monitor Chano Pelletier RN Nurse Bell Erickson RT Hydrostatic Tester Erin Kingston Land Surveyor Assistant Frederic Iyer CRNA Additional personnel Procedure Data Cath Procedure Fluoroscopy Diagnostic fluoroscopy Total fluoroscopy Time: 0 time: 0 min min Diagnostic fluoroscopy Total fluoroscopy dose: 0 dose: 0 mGy mGy Estimated blood loss: 0 ml Procedure Complications No complications Hemodynamics Rest BSA: 1.88 (m2) HGB: 13.1 (g/dl) O2 Consumption: Estimated: 168.43 (ml/min) O2 Consumption indexed: Estimated:89.59 (ml/min/m) Heart Rate: 63 (bpm) Snapshots Pre Cath Intra NCS Post Cath Vital Signs Time Heart Resp SPO2 etCO2 NIBP (mmHg) Rhythm Pain Sedation Rate (ipm) (%) (mmHg) Status Level (bpm) 10:00:54 61 5 96 0 139/70(110) NSR (Missing) 10(A) 10:05:10 61 9 96 0 144/67(105) NSR (Missing) 10(A) 10:09:29 64 19 99 0 123/71(98) NSR (Missing) 10(A) 10:13:36 69 9 100 0 138/79(120) NSR (Missing) 10(A) 10:17:52 66 13 0 150/69(107) NSR (Missing) 10(A) 10:22:12 57 12 100 0 124/65(97) NSR (Missing) 10(A) 10:26:12 71 9 100 0 112/98(103) NSR (Missing) 10(A) Procedure Log Time Note 9:40:21 Bell Erickson RT(R) (CV) sent for patient. Start room use. 9:52:51 Arrival Date: 09/04/2019 12:00:00 AM 9:53:18 Admit Source: Other 9:53:24 Insurance Payor : Medicare 9:53:33 Patient Height : 65 inches 9:53:38 Patient Weight : 177 lbs 9:57:49 Lab Result : BUN 12 mg/dl 9:57:49 Lab Result : eGFR NONAFRICAN 75 ml/min 9:57:49 Lab Result : Creatinine 0.8 mg/dl 9:57:49 Lab Result : Hematocrit 39.1 % 9:57:49 Lab Result : Hemoglobin 13.1 g/dl 9:57:58 Procedure Status DENYS. 9:59:27 Time tracking: Regular hours (M-F 7:00 - 5:00) 9:59:29 Plan of Care:Hemodynamics will remain stable., Cardiac rhythm will remain stable., Comfort level will be maintained., Respiratory function will remain adequate., Patient/ family verbilizes understanding of procedure., Procedure tolerated without complication., Recovers from procedure without complications.. 9:59:33 Patient arrived from Pre/Post Procedure Room to CCL 3. Patient remains on bed/stretcher for procedure. 9:59:35 Signed procedure consent form obtained from patient. 9:59:36 Warm blankets applied, and humaira hugger turned on for patient comfort. 9:59:36 Correct patient and procedure confirmed by team. 9:59:37 ECG and BP/O2 sat monitors applied to patient. 9:59:39 Baseline sample Acquired. 9:59:39 Vital chart was started 9:59:43 Rhythm: sinus rhythm 9:59:44 Full Disclosure recording started 9:59:52 H&P Date Dictated: 08/22/2019 Within 30 days and on chart., H&P Addendum completed by physician on day of procedure. (MUST COMPLETE FOR ALL OUTPATIENTS). 9:59:53 Pre-procedure instructions explained to patient. 9:59:53 Pre-op teaching completed and patient verbalized understanding. 9:59:55 Family in patients room. 9:59:56 Patient NPO since Midnight. 10:00:03 Patient allergic to Shellfish 10:00:05 Is patient on blood thinner?Yes 10:00:07 ACC The patient was administered the following blood thiners within the last 24 hours: ACCPlavix 10:00:09 Patient diabetic? No. 10:00:13 Previous problem with sedation/anesthesia? No ? 10:00:14 Snore? Yes 10:00:16 Sleep apnea? No 10:00:17 Deviated septum? No 10:00:23 Opens mouth fully? Yes 10:00:25 Sticks out tongue? Yes 10:00:26 Airway obstruction? No ? 10:00:28 Dentures? No ? 10:00:34 IV patent on arrival in left antecubital with 0.9% NaCl at KVO. 10:00:36 Lab results completed and on chart. 10:00:38 Alarms reviewed by Carlie Chahal 10:01:28 Erin Kingston Janitorial Account Manager present for DENYS. 10:07:38 Frederic Iyer CRNA present and monitoring patient for TIVA. 10::38 --------ALL STOP TIME OUT------ ::38 Final Timeout: patient, procedure, and site verified with staff and physician. All members of the team are in agreement. 10:13:42 Physical assessment completed. ASA score P 3 - A patient with severe systemic disease as per Nj Monroe MD. 10:13:46 Sedation plan: TIVA Medication:Propofol 10:14:14 Procedure started. 10:14:16 DENYS 10:14:54 DENYS started. 10:20:12 DENYS completed. 10:20:21 Procedure ended.(Physican Out) 10:21:40 Fluoroscopy time 00.00 minutes. 10:21:42 Fluoroscopy dose: 0 mGy 10:21:42 Flurop Dose total: 0 10:21:44 Dose Area Product 0 mGy/cm. 10:21:52 Post-procedure physical assessment completed. ASA score P 3 - A patient with severe systemic disease as per Nj Monroe MD. 10:21:56 Post procedure rhythm: unchanged. 10:21:58 Estimated blood loss: 0 ml 10:21:59 Post procedure instruction explained to patient.Patient verbalizes understanding. 10:21:59 Patient needs reinforcement of post procedure teaching. 10:22:05 Procedure and supply charges have been captured, reviewed, submitted and are correct. 10:22:11 Procedure Complication : No complications 10:22:19 DENYS Findings: other (see operative note) 10:22:21 Operative report dictated upon procedure completion. 10:22:21 See physician's report for complete and final results. 10:22:24 Report given to Pre/Post Procedure Room. 10:22:27 Patient transfered to Pre/Post Procedure Room with Bed. 10:26:06 Vital chart was stopped 10:26:10 Procedure ended. 10:26:10 Full Disclosure recording stopped 10:26:13 End room use (Document Last) 10:27:25 End room use (Document Last) 10:27:50 End room use (Document Last) Signature Audit [place] Stage Time Signature Unsigned Intra-Procedure 09/04/2019 Miriam Chong 10:27:25 AM RT(R) Intra-Procedure 09/04/2019 Chano Pelletier 10:27:50 AM RN Intra-Procedure 09/04/2019 Nj De Los Santos 10:29:55 AM Daniel HOLT [address] [address]
[2019-09-04] MEDS ORDERED: RANEXA500 MG PO (08:55)
[2019-09-04 09:06] VITALS: BP 136/67; Ht 162.6 cm; Wt 81.3 kg
[2019-09-04 09:16] LABS: BASOPHILS 0.4 % (0-2); EOSINOPHILS 1.5 % (0-7); HEMATOCRIT 39.1 % (36.0-48.0); HEMOGLOBIN 13.1 g/dL (12-16); IMMATURE GRANULOCYTES 0.2 % (0-5); LYMPHOCYTES 28.3 % (15-50); MCH 28.8 pg (26.0-34.0); MCHC 33.5 g/dL (31.0-37.0); MCV 85.9 fL (80.0-100.0); MEAN PLATELET VOLUME 8.5 fL (7.4-10.4); MONOCYTES 8.8 % (2-11); NEUTROPHILS 60.8 % (40-80); PLATELET COUNT 271 10x3/uL (130-400); RBC 4.55 10x6/uL (4.00-5.40); RDW 12.2 % (11.5-14.5); WBC 5.4 10x3/uL (4.8-10.8)
[2019-09-04 09:39] LABS: CALC OSMOLALITY 264 mosm/kg (275-300); CALCIUM 9.3 mg/dL (8.5-10.1); CARBON DIOXIDE 28.6 mmol/L (21.0-32.0); CHLORIDE - SERUM 97 mmol/L (98-107); CREATININE - SERUM 0.8 mg/dL (0.6-1.3); GLUCOSE 99 mg/dL (74-106); POTASSIUM - SERUM 3.6 mmol/L (3.5-5.1); SODIUM 132 mmol/L (136-145); UREA NITROGEN 12 mg/dL (7-18); eGFR NON AFRICAN AMERICAN 75 mL/min (90-120)
--- NOTE | 2019-09-04 10:38 | NUR ---
PT ARRIVED BY STRETCHER. PLACED ON MONITORS. ASSESSMENT COMPLETED. VSS. PT ALERT AND ORIENTED. DR. VUONG ROUNDED AND SPOKE WITH PT'S FAMIILY.
--- NOTE | 2019-09-04 10:55 | NUR ---
PT SITTING UP IN BED. ALERT AND ORIENTED. VSS. FAMILY AT BEDSIDE. CALL LIGHT WITHIN REACH.
--- NOTE | 2019-09-04 11:20 | NUR ---
PT SITTING UP IN BED. VSS. DENIES ANY NAUSEA/VOMITING. DENIES PAIN. PIV D/C'D WITH CATH TIP INTACT. TOLERATED WELL. PT INSTRUCTED TO GET UP AND DRESSED AT THIS TIME. FAMILY AT BEDSIDE TO ASSIST. DISCUSSED DISCHARGE INSTRUCTIONS WITH PT AND PT'S FAMILY. THEY VOICED UNDERSTANDING.
--- NOTE | 2019-09-04 11:30 | NUR ---
PT TAKEN DOWN TO VEHICLE BY WHEELCHAIR. TOLERATING SIPS OF WATER. NO S/S OF DISTRESS NOTED. ALL BELONGINGS AND PAPERWORK IN HAND.
--- NOTE | 2019-09-05 15:26 | TEE ---
PATIENT:BRYAN UGALDE MEDICAL RECORD: [id number] LOCATION:D[facility] AGE OF PATIENT: 69 ADMISSION DATE: 09/04/19 SEX: F REFERRING PHYSICIAN: INTERPRETING PHYSICIAN: JOANA VUONG MD TRANSESOPHAGEAL ECHOCARDIOGRAM Date: 09/04/19 DENYS CHARGE Y INDICATIONS: R/O MR PREMEDICATIONS: PATIENT'S RESPONSE PROCEDURE DOPPLER MEASUREMENTS: LVIT LA PA RA LVOT RVOT Asc. Ao AV Gradient Peak AV Mean AV Area MV Gradient Peak MV Mean MV Area INTERPRETATION: Doppler: 2-D: COLOR FLOW DOPPLER NORMAL SALINE STUDY: MISCELLANOUS: DIAGNOSIS: PLAN: Application Defense Manager:3 Dr. Mccollum Superintendent Production: Melissa HUGO COMMENTS: DATE OF SERVICE: 09/04/2019 DESCRIPTION OF PROCEDURE: After general sedation via TIVA via anesthesia, transesophageal Omniplane probe was placed in the distal esophagus and proximal stomach without difficulty. No LVH. LV internal dimensions are normal. Wall motion is normal. EF is greater than or equal to 55%. The aortic valve is tricuspid with good valve excursion. No AI by color flow imaging. Left atrium appears normal. The left TRANSESOPHAGEAL ECHOCARDIOGRAM REPORT [id number] KD UGALDE atrial appendage appears normal with good contractility. Mitral valve has some redundancy of the anterior leaflet; however, there is no true prolapse, does not appear to break the plane of the mitral annulus itself. Mild MR only. Right-sided chambers are grossly normal. Tricuspid pulmonic valves are well visualized with trace TR only. At the end of the procedure, the transesophageal Omniplane probe was turned posteriorly and this showed minimal atherosclerotic debris in the descending aorta. TRANSINT:[id number] Voice Confirmation ID: [id number] DOCUMENT ID: [id number] at [id number] CC: [id number] DICTATION DATE: 09/04/19 1025 HAIR ROOTING MACHINE OPERATOR: 09/05/19 0219 DEP CLI 09/04/19 [id number] [place] [address]
== END 2019-09-04 11:30 | disposition home or self-care (01) ==
LOC: D.CATH 07:59
PROVIDERS: ATTEND Internal Medicine Interventional Cardiology
DX: R06.02 Shortness of breath (principal); I25.10 Atherosclerotic heart disease of native coronary artery without angina pectoris; I34.0 Nonrheumatic mitral (valve) insufficiency; E78.5 Hyperlipidemia, unspecified

== ENCOUNTER → 2019-10-23 09:35 | Outpatient (CLI) | payer MEDICARE, OTHER ==
[2019-09-04 09:06] VITALS: BMI 30.7
[~2019-10-23 09:35] MED LIST changes: +RANEXA500 MG PO
[2019-10-25 20:07] LABS: IMMUNOGLOBULIN E 25 IU/mL (6-495)
== END | disposition home or self-care (01) ==
LOC: D.LAB 09:35
PROVIDERS: ATTEND Allergy & Immunology
DX: J45.909 Unspecified asthma, uncomplicated (principal); J30.89 Other allergic rhinitis